=== PATIENT | female | born 1985 | race Caucasian/White ===

== ENCOUNTER → 2016-07-28 | Outpatient (CLI) | payer OTHER ==
[~2016-07-28] MED LIST: ANAPROX DS550 MG PO; CEFADROXIL500 M1 PO; CIPROFLOXACIN500 MG PO; NKHM; VICODIN 5/500 505 MG PO
[2016-07-28 10:24] LABS: BASO % 0.6 % (0.0-1.0); EOS # 0.1 10*3/uL (0.0-0.4); EOS % 1.5 % (1.0-4.0); HEMATOCRIT 42.9 % (37.0-47.0); HEMOGLOBIN 14.3 g/dl (12.0-16.0); LYMPH # 2.1 10*3/uL (1.3-4.4); LYMPH % 28.7 % (27.0-41.0); MEAN CELL VOLUME 91.3 fl (81.0-99.0); MEAN CORPUSCULAR HGB 30.4 pg (27.0-31.0); MEAN CORPUSCULAR HGB CONC 33.3 g/dl (33.0-37.0); MEAN PLATELET VOLUME 8.5 fl (9.6-12.3); MONO # 0.6 10*3/uL (0.1-1.0); MONO % 8.4 % (3.0-9.0); NEUT # 4.3 10*3/uL (2.3-7.9); NEUT % 60.5 % (47.0-73.0); PLATELET COUNT AUTOMATED 287 10*3/uL (130-400); RED CELL DISTRI WIDTH 12.5 % (0-14.5); WHITE BLOOD COUNT 7.2 10*3/uL (4.8-10.8)
[2016-07-28 10:48] LABS: ALKALINE PHOSPHATASE 42 U/L (45-117); BILIRUBIN, TOTAL 0.4 mg/dl (0.2-1.0); BUN 7 mg/dl (7-24); CARBON DIOXIDE 24 mmol/L (21-32); CHLORIDE 108 mmol/L (98-107); CHOLESTEROL 130 mg/dL (<200); EST GLOM FILT AFRICAN AMERICAN > 60 ml/min; GLUCOSE 88 mg/dL (65-99); HDL CHOLESTEROL 52 mg/dl (40-60); LDL CHOLESTEROL 67 mg/dL (9-159); POTASSIUM 3.6 mmol/L (3.5-5.1); SGOT/AST 11 IU/L (3-35); SGPT/ALT 15 U/L (12-78); SODIUM 140 mmol/L (136-145); TRIGLYCERIDES 55 mg/dl (<150); VLDL CHOLESTEROL 11 mg/dL (6-40)
[2016-07-28 10:49] LABS: HEMOGLOBIN A1c 5.2 % (4.8-5.6)
[2016-07-28 11:08] LABS: VITAMIN D, 25-HYDROXY 42.8 ng/mL (30-100)
[2016-07-28 11:09] LABS: FOLIC ACID 7.79 ng/mL (>5.38)
== END | disposition home or self-care (01) ==
LOC: LAB 09:49
PROVIDERS: Nurse Practitioner Psychiatric/Mental Health
DX: Z51.81 Encounter for therapeutic drug level monitoring (principal); Z79.899 Other long term (current) drug therapy

== ENCOUNTER 2016-08-18 20:38 | Emergency (ER) | payer OTHER ==
[~2016-08-18] VITALS: Ht 170.1 cm; Wt 58.1 kg
[2016-08-18] MEDS ORDERED: KLONOPIN0.5 MG PO (20:46)
[2016-08-18] MEDS ORDERED: ZITHROMAX250 MG PO (22:29)
[2016-08-18] MEDS ORDERED: ROBITUSSIN AC 110 ML PO (22:29)
== END 2016-08-18 22:41 | disposition home or self-care (01) ==
LOC: ED 20:38
DX: J20.9 Acute bronchitis, unspecified (principal); J32.9 Chronic sinusitis, unspecified; F17.200 Nicotine dependence, unspecified, uncomplicated; Z91.018 Allergy to other foods; Z79.899 Other long term (current) drug therapy

== ENCOUNTER 2017-01-06 20:30 | Emergency (ER) | payer OTHER ==
[~2017-01-06] VITALS: Wt 56.2 kg
[~2017-01-06 20:30] MED LIST changes: +KLONOPIN0.5 MG PO; +ROBITUSSIN AC 110 ML PO; +ZITHROMAX250 MG PO
[2017-01-06 20:44] LABS: BILIRUBIN NEGATIVE (NEGATIVE); BLOOD NEGATIVE (NEGATIVE); CLARITY CLEAR (CLEAR); COLOR YELLOW (YELLOW); GLUCOSE NEGATIVE (NEGATIVE); KETONE 2+ (NEGATIVE); LEUKO ESTERASE TRACE (NEGATIVE); NITRITE NEGATIVE (NEGATIVE); SPECIFIC GRAVITY 1.025 (1.005-1.030); UROBILINOGEN 0.2 E.U./dl (0.2-1.0)
[2017-01-06 20:58] LABS: BACTERIA TRACE; RBC 0-2 rbc/hpf (0-2)
[2017-01-06] MEDS ORDERED: AMINOPHYLLIN200 MG PO (21:19)
== END 2017-01-06 21:23 | disposition home or self-care (01) ==
LOC: ED 20:30
PROVIDERS: Physician Assistant
DX: N39.0 Urinary tract infection, site not specified (principal); F17.200 Nicotine dependence, unspecified, uncomplicated; Z79.899 Other long term (current) drug therapy; Z88.0 Allergy status to penicillin; Z91.018 Allergy to other foods

== ENCOUNTER 2018-07-19 21:29 | Emergency (ER) | payer OTHER ==
[~2018-07-19] VITALS: Wt 56.7 kg
[~2018-07-19 21:29] MED LIST changes: +AMINOPHYLLIN200 MG PO; +MEDROL DOSEPAK4 MG PO; +ROBAXIN500 M1 PO
[2018-07-19 23:08] LABS: BASO # 0.1 10*3/uL (0.0-0.1); BASO % 0.6 % (0.0-1.0); EOS # 0.3 10*3/uL (0.0-0.4); EOS % 3.2 % (1.0-4.0); HEMATOCRIT 45.6 % (37.0-47.0); HEMOGLOBIN 15.2 g/dl (12.0-16.0); LYMPH # 2.5 10*3/uL (1.3-4.4); LYMPH % 30.3 % (27.0-41.0); MEAN CORPUSCULAR HGB 31.3 pg (27.0-31.0); MEAN CORPUSCULAR HGB CONC 33.3 g/dl (33.0-37.0); MEAN PLATELET VOLUME 8.3 fl (9.6-12.3); MONO # 0.6 10*3/uL (0.1-1.0); MONO % 7.2 % (3.0-9.0); NEUT # 4.9 10*3/uL (2.3-7.9); NEUT % 58.5 % (47.0-73.0); PLATELET COUNT AUTOMATED 268 10*3/uL (130-400); RED BLOOD COUNT 4.85 10*6/uL (4.10-5.10); RED CELL DISTRI WIDTH 12.6 % (0-14.5); WHITE BLOOD COUNT 8.4 10*3/uL (4.8-10.8)
[2018-07-19 23:20] LABS: ALBUMIN 3.9 gm/dl (3.1-4.5); ALKALINE PHOSPHATASE 53 U/L (45-117); BUN 13 mg/dl (7-24); CHLORIDE 106 mmol/L (98-107); CREATININE 0.64 mg/dL (0.55-1.02); SGOT/AST 10 IU/L (3-35); SGPT/ALT 19 U/L (12-78); SODIUM 138 mmol/L (136-145)
[2018-07-19 23:22] LABS: BILIRUBIN NEGATIVE (NEGATIVE); BLOOD NEGATIVE (NEGATIVE); CLARITY CLOUDY (CLEAR); COLOR YELLOW (YELLOW); GLUCOSE NEGATIVE (NEGATIVE); KETONE NEGATIVE (NEGATIVE); LEUKO ESTERASE 3+ (NEGATIVE); NITRITE NEGATIVE (NEGATIVE); PH 7.5 (5.0-9.0); SPECIFIC GRAVITY 1.015 (1.005-1.030); UROBILINOGEN 0.2 E.U./dl (0.2-1.0)
[2018-07-20] MEDS ORDERED: CIPRO500 MG PO (00:05)
== END 2018-07-20 00:43 | disposition home or self-care (01) ==
LOC: ED 21:29
PROVIDERS: Physician Assistant
DX: N39.0 Urinary tract infection, site not specified (principal); F17.200 Nicotine dependence, unspecified, uncomplicated; Z88.0 Allergy status to penicillin; Z91.018 Allergy to other foods

== ENCOUNTER → 2018-12-21 | Outpatient (CLI) | payer OTHER ==
[~2018-12-21] MED LIST changes: +CIPRO500 MG PO
[2018-12-21 09:07] LABS: HEMATOCRIT 42.7 % (37.0-47.0); HEMOGLOBIN 14.4 g/dl (12.0-16.0); MEAN CELL VOLUME 94.1 fl (81.0-99.0); MEAN CORPUSCULAR HGB 31.7 pg (27.0-31.0); MEAN CORPUSCULAR HGB CONC 33.7 g/dl (33.0-37.0); MEAN PLATELET VOLUME 8.5 fl (9.6-12.3); RED BLOOD COUNT 4.54 10*6/uL (4.10-5.10); RED CELL DISTRI WIDTH 12.5 % (0-14.5); WHITE BLOOD COUNT 7.5 10*3/uL (4.8-10.8)
[2018-12-21 09:20] LABS: ALKALINE PHOSPHATASE 45 U/L (45-117); BUN 9 mg/dl (7-24); CHLORIDE 107 mmol/L (98-107); CHOLESTEROL 156 mg/dL (<200); CREATININE 0.68 mg/dL (0.55-1.02); HDL CHOLESTEROL 44 mg/dl (40-60); LDL CHOLESTEROL 97 mg/dL (9-159); POTASSIUM 3.6 mmol/L (3.5-5.1); SGOT/AST 9 IU/L (3-35); SGPT/ALT 15 U/L (12-78); SODIUM 139 mmol/L (136-145); TOTAL PROTEIN 7.5 gm/dL (6.4-8.2); TRIGLYCERIDES 75 mg/dl (<150); VLDL CHOLESTEROL 15 mg/dL (6-40)
[2018-12-22 07:05] LABS: HEPATITIS B SURFACE AB 006395 Non Reactive (.); HEPATITIS B SURFACE AG Negative (Negative)
[2018-12-22 15:08] LABS: RUBEOLA AB IGG 096560 35.5 AU/mL (Immune >16.4); VARICELLA-ZOSTER IGG 096206 1663 index (Immune >165); VARICELLA-ZOSTER IGM AB 1.11 index (0.00-0.90)
== END | disposition home or self-care (01) ==
LOC: LAB 08:41
PROVIDERS: Family Medicine
DX: Z13.220 Encounter for screening for lipoid disorders (principal); Z02.0 Encounter for examination for admission to educational institution; E55.9 Vitamin D deficiency, unspecified

== ENCOUNTER 2020-01-04 17:53 | Emergency (ER) | payer OTHER ==
[~2020-01-04] VITALS: Ht 170.1 cm; Wt 61.2 kg
[2020-01-04 19:13] LABS: BASO # 0.1 10*3/uL (0.0-0.1); BASO % 0.4 % (0.0-1.0); EOS # 0.1 10*3/uL (0.0-0.4); EOS % 0.6 % (1.0-4.0); HEMATOCRIT 41.7 % (37.0-47.0); LYMPH # 1.2 10*3/uL (1.3-4.4); LYMPH % 8.8 % (27.0-41.0); MEAN CELL VOLUME 91.4 fl (81.0-99.0); MEAN CORPUSCULAR HGB 30.7 pg (27.0-31.0); MEAN CORPUSCULAR HGB CONC 33.6 g/dl (33.0-37.0); MEAN PLATELET VOLUME 8.2 fl (9.6-12.3); MONO # 0.7 10*3/uL (0.1-1.0); MONO % 4.9 % (3.0-9.0); NEUT # 11.6 10*3/uL (2.3-7.9); NEUT % 84.9 % (47.0-73.0); PLATELET COUNT AUTOMATED 291 10*3/uL (130-400); RED BLOOD COUNT 4.56 10*6/uL (4.10-5.10); RED CELL DISTRI WIDTH 12.3 % (0-14.5); WHITE BLOOD COUNT 13.7 10*3/uL (4.8-10.8)
[2020-01-04 19:24] LABS: ACT PARTIAL THROMBO TIME 29.1 SECONDS (20.0-32.1)
[2020-01-04 19:31] LABS: ALBUMIN 4.3 gm/dl (3.1-4.5); BUN 6 mg/dl (7-24); CHLORIDE 108 mmol/L (98-107); LIPASE 219 U/L (73-393); POTASSIUM 3.7 mmol/L (3.5-5.1); SGOT/AST 17 IU/L (3-35); SGPT/ALT 19 U/L (12-78); SODIUM 139 mmol/L (136-145); TOTAL PROTEIN 8.2 gm/dL (6.4-8.2)
[2020-01-04 19:32] LABS: ALKALINE PHOSPHATASE 46 U/L (45-117)
[2020-01-04 19:34] LABS: BETA-HCG, QUANT < 1.0 mIU/mL (1-3); TROPONIN I < 0.015 ng/ml (<0.045)
[2020-01-05] MEDS ORDERED: ATIVAN1 MG PO (12:40)
== END 2020-01-04 20:44 | disposition home or self-care (01) ==
LOC: ED 17:53
PROVIDERS: Emergency Medicine
DX: F41.1 Generalized anxiety disorder (principal); F43.0 Acute stress reaction; F17.200 Nicotine dependence, unspecified, uncomplicated; Z88.0 Allergy status to penicillin; Z88.8 Allergy status to other drugs, medicaments and biological substances; Z79.899 Other long term (current) drug therapy

== ENCOUNTER 2020-01-05 10:58 | Emergency (ER) | payer OTHER ==
[2020-01-05] MEDS ORDERED: ATIVAN1 MG PO (12:40)
== END 2020-01-05 12:45 | disposition home or self-care (01) ==
LOC: ED 10:58
DX: F41.9 Anxiety disorder, unspecified (principal); Z88.0 Allergy status to penicillin; Z88.8 Allergy status to other drugs, medicaments and biological substances; Z79.899 Other long term (current) drug therapy

== ENCOUNTER → 2022-03-31 | Outpatient (CLI) | payer OTHER ==
[~2022-03-31] MED LIST changes: +ATIVAN1 MG PO
== END | disposition home or self-care (01) ==
LOC: LAB 16:21
PROVIDERS: ATTEND Internal Medicine
DX: B34.9 Viral infection, unspecified (principal)

== ENCOUNTER 2023-07-03 00:21 | Emergency (ER) | payer OTHER ==
[~2023-07-03] VITALS: Ht 17.8 cm; Wt 77.1 kg
[2023-07-03 00:42] LABS: BASO # 0.1 10*3/uL (0.0-0.1); BASO % 0.6 % (0.0-1.0); EOS # 0.1 10*3/uL (0.0-0.4); EOS % 1.5 % (1.0-4.0); HEMATOCRIT 42.8 % (37.0-47.0); LYMPH # 1.7 10*3/uL (1.3-4.4); LYMPH % 21.7 % (27.0-41.0); MEAN CELL VOLUME 91.6 fl (81.0-99.0); MEAN CORPUSCULAR HGB CONC 33.9 g/dl (33.0-37.0); MEAN PLATELET VOLUME 7.8 fl (9.6-12.3); MONO # 0.8 10*3/uL (0.1-1.0); MONO % 10.2 % (3.0-9.0); NEUT # 5.2 10*3/uL (2.3-7.9); NEUT % 65.7 % (47.0-73.0); PLATELET COUNT AUTOMATED 198 10*3/uL (130-400); RED BLOOD COUNT 4.67 10*6/uL (4.10-5.10); RED CELL DISTRI WIDTH 12.3 % (0-14.5); WHITE BLOOD COUNT 7.9 10*3/uL (4.8-10.8)
[2023-07-03 01:00] LABS: BUN 10 mg/dl (9-23); CHLORIDE 101 mmol/L (98-107); LIPASE 53 U/L (12-53); POTASSIUM 3.5 mmol/L (3.4-5.1)
[2023-07-03 01:01] LABS: ETHYL ALCOHOL < 3.0 mg/dl (<3)
[2023-07-03 01:35] LABS: BILIRUBIN Negative (Negative); BLOOD Negative (Negative); CLARITY Clear (Clear); COLOR Yellow (Yellow); GLUCOSE Negative (Negative); KETONE Negative (Negative); LEUKO ESTERASE Negative (Negative); NITRITE Negative (Negative); PH 5.5 (4.5-8.0); SPECIFIC GRAVITY >= 1.030 (1.001-1.030)
[2023-07-03 01:42] LABS: URINE AMPHETAMINES Negative (1000ng/ml); URINE BARBITURATES Negative (200ng/ml); URINE BENZODIAZEPINES Negative (200ng/ml); URINE CANNABINOIDS (THC) Negative (50ng/ml); URINE COCAINE Negative (300ng/ml); URINE METHADONE Negative (300ng/ml); URINE OPIATES Negative (300ng/ml); URINE PHENCYCLIDINE Negative (25ng/ml)
[2023-07-03 01:47] LABS: MUCOUS 1+; RBC 0-2 rbc/hpf (0-2)
== END 2023-07-03 04:42 | disposition left against medical advice (07) ==
LOC: ED 00:21
PROVIDERS: Internal Medicine
DX: R07.89 Other chest pain (principal); Z53.29 Procedure and treatment not carried out because of patient's decision for other reasons; F17.200 Nicotine dependence, unspecified, uncomplicated; Z91.018 Allergy to other foods; Z79.2 Long term (current) use of antibiotics; Z79.899 Other long term (current) drug therapy

== ENCOUNTER → 2023-11-01 | Outpatient (CLI) | payer OTHER ==
[2023-11-01 12:04] LABS: ALKALINE PHOSPHATASE 57 U/L (46-116); BUN 9 mg/dl (9-23); CHLORIDE 108 mmol/L (98-107); FREE T4 1.04 ng/dl (0.89-1.76); POTASSIUM 3.9 mmol/L (3.4-5.1); SGPT/ALT 17 U/L (5-49); TOTAL PROTEIN 7.3 gm/dL (6.0-8.0)
== END | disposition home or self-care (01) ==
LOC: LAB 10:57
PROVIDERS: ATTEND Internal Medicine
DX: F41.9 Anxiety disorder, unspecified (principal)

== ENCOUNTER 2023-12-21 00:41 | Emergency (ER) | payer OTHER ==
[~2023-12-21] VITALS: Ht 167.6 cm; Wt 79.8 kg
[2023-12-21] MEDS ORDERED: Ketorolac Tromethamine 60 MG/2 ML VIAL IM ONE (01:05)
[2023-12-21] MEDS ORDERED: METHOCARBAMOL 500 MG TAB PO ONE (01:05)
[2023-12-21] MEDS ORDERED: METHOCARBAMOL500 M1 PO (01:07)
[2023-12-21] MEDS ORDERED: NAPROXEN250 MG PO (01:07)
== END 2023-12-21 01:24 | disposition home or self-care (01) ==
LOC: ED 00:41
DX: S29.012A Strain of muscle and tendon of back wall of thorax, initial encounter (principal); Z91.018 Allergy to other foods; Z79.2 Long term (current) use of antibiotics; Z79.899 Other long term (current) drug therapy; X58.XXXA Exposure to other specified factors, initial encounter; Y93.89 Activity, other specified; Y92.89 Other specified places as the place of occurrence of the external cause; Y99.8 Other external cause status

== ENCOUNTER 2024-12-01 19:25 | Emergency (ER) | payer OTHER ==
[~2024-12-01 19:25] MED LIST changes: +METHOCARBAMOL500 M1 PO; +NAPROXEN250 MG PO
[2024-12-01] MEDS ORDERED: Tdap Vaccine 0.5 ML SYR (Adult Vaccine) IM ONE (20:55)
[2024-12-01] MEDS ORDERED: VIBRAMYCIN100 MG PO (21:04)
== END 2024-12-01 21:10 | disposition home or self-care (01) ==
LOC: ED 19:25
DX: S91.031A Puncture wound without foreign body, right ankle, initial encounter (principal); Z91.018 Allergy to other foods; Z79.899 Other long term (current) drug therapy; W55.51XA Bitten by raccoon, initial encounter; Y93.89 Activity, other specified; Y92.89 Other specified places as the place of occurrence of the external cause; Y99.8 Other external cause status

== ENCOUNTER 2024-12-02 15:01 | Emergency (ER) | payer OTHER ==
[~2024-12-02 15:01] MED LIST changes: +VIBRAMYCIN100 MG PO
[2024-12-02] MEDS ORDERED: Rabies Vaccine 1 ML VIAL IM ONE (18:00)
[2024-12-02] MEDS ORDERED: Rabies Immune Globulin 150O UNIT/10 ML IM ONE (18:15)
== END 2024-12-02 20:26 | disposition home or self-care (01) ==
LOC: ED 15:01
DX: Z23 Encounter for immunization (principal); Z91.018 Allergy to other foods

== ENCOUNTER 2024-12-05 16:11 | Emergency (ER) | payer OTHER ==
[~2024-12-05] VITALS: Ht 167.6 cm; Wt 72.6 kg
[2024-12-05] MEDS ORDERED: Rabies Vaccine 1 ML VIAL IM ONE (16:40)
== END 2024-12-05 17:22 | disposition home or self-care (01) ==
LOC: ED 16:11
DX: Z23 Encounter for immunization (principal); Z91.018 Allergy to other foods

== ENCOUNTER 2024-12-09 07:28 | Emergency (ER) | payer OTHER ==
[~2024-12-09] VITALS: Ht 167.6 cm; Wt 72.6 kg
[2024-12-09] MEDS ORDERED: Rabies Vaccine 1 ML VIAL IM ONE (08:00)
== END 2024-12-09 08:30 | disposition home or self-care (01) ==
LOC: ED 07:28
DX: S90.511D Abrasion, right ankle, subsequent encounter (principal); Z23 Encounter for immunization; F17.290 Nicotine dependence, other tobacco product, uncomplicated; X58.XXXA Exposure to other specified factors, initial encounter

== ENCOUNTER 2024-12-16 06:37 | Emergency (ER) | payer OTHER ==
[~2024-12-16] VITALS: Ht 167.6 cm; Wt 72.6 kg
[2024-12-16] MEDS ORDERED: Rabies Vaccine 1 ML VIAL IM ONE (06:45)
== END 2024-12-16 07:40 | disposition home or self-care (01) ==
LOC: ED 06:37
DX: Z23 Encounter for immunization (principal); F17.200 Nicotine dependence, unspecified, uncomplicated; Z91.018 Allergy to other foods